=== PATIENT | female | born 1995 | race Caucasian/White ===

== ENCOUNTER 2017-01-09 13:55 | Emergency (ER) | payer OTHER ==
[2017-01-09 17:32] LABS: Manual Entry Verification MD; UR Preg Internal Control QC Line Present
[2017-01-09 17:38] LABS: Urine Bacteria Absent (Absent); Urine Bilirubin Negative (Negative); Urine Glucose Negative (Negative); Urine Nitrite Negative (Negative)
[2017-01-09] MEDS ORDERED: Morphine INJ* 4 MG/ML 1 ML SYRINGE IV ONE (17:43)
[2017-01-09] MEDS ORDERED: Ondansetron INJ* 2 MG/ML VIAL IV ONE (17:43)
[2017-01-09] MEDS ORDERED: NS 0.9% 1000 ML* 1,000 ML IV ONE ×2 (17:44→19:36)
[2017-01-09 18:48] LABS: Hematocrit 39 % (35-47); Hemoglobin 12.6 g/dl (12.0-16.0); Mean Corpuscular HGB Conc 33 g/dl (31-36); Mean Corpuscular Hemoglobin 27 pg (27-31); Mean Corpuscular Volume 84 fL (80-97); Mean Platelet Volume 8 um3 (7.4-10.4); Red Blood Count 4.63 10^6/ul (4.0-5.4); Red Cell Distribution Width 15 % (10.5-15); White Blood Count 5.9 10^3/ul (3.5-10.8)
--- NOTE | 2017-01-09 18:49 | RAD ---
INDICATION: Right adnexal pain and emesis COMPARISON: None. TECHNIQUE: Real-time transabdominal and transvaginal ultrasound examination of the female pelvis including grayscale and Doppler color flow imaging. FINDINGS: Uterus: The uterus is normal in size and echogenicity measuring 7.6 x 3.6 x 4.4 cm. The endometrial stripe is smooth and uniform measuring 8 mm in thickness. Ovaries: The right and left ovary measure 4.6 x 3.3 x 3.7 cm and 4.2 x 1.9 x 2.3 cm, respectively. Normal arterial and venous waveforms are identified. Within the right ovary there is a partially echogenic but avascular cystic structure measuring 2.6 x 2.1 x 2.3 cm. There is small amount of free fluid in the cul-de-sac. IMPRESSION: Complex right ovarian cystic structure is most compatible with a involuting or hemorrhagic follicle with a small amount of free fluid in the pelvis in this otherwise normal and age-appropriate pelvic ultrasound.
[2017-01-09 18:57] LABS: Albumin 4.5 g/dL (3.2-5.2); BUN/Creatinine Ratio 13.9 (8-20); Calcium 9.5 mg/dL (8.6-10.3); EGFR African American 130.3 (>60); EGFR Non-African American 101.3 (>60); Globulin 3.8 g/dL (2-4); Potassium 3.5 mmol/L (3.5-5.0); Total Bilirubin 0.6 mg/dL (0.2-1.0); Total Protein 8.3 g/dL (6.4-8.9)
[2017-01-09] MEDS ORDERED: Iohexol 300* (CONTRAST) 10 ML SDV IV ONE (19:17)
[2017-01-09] MEDS ORDERED: diPHENhydraMINE IV* 50 MG/ML 1 ml VIAL (BENADRYL) IV ONE (21:06)
[2017-01-09] MEDS ORDERED: diPHENhydraMINE IV* 50 MG/ML 1 ml VIAL (BENADRYL) ONE (21:07)
--- NOTE | 2017-01-09 21:24 | RAD ---
CLINICAL HISTORY: Right lower quadrant pain COMPARISON: Same day pelvic ultrasound that shows a complex right ovarian follicle in a small amount of free fluid in the pelvis. TECHNIQUE: Contrast enhanced CT examination of the abdomen and pelvis from the lung bases through the initial tuberosities. The patient received 100 mL Omnipaque 300 intravenously prior to imaging.The patient received oral contrast as well prior to imaging. FINDINGS: VISUALIZED LUNG BASES: The visualized lung bases are grossly clear. There is no pleural effusion. ABDOMEN AND PELVIS: The liver, spleen, pancreas and adrenal glands are grossly normal in appearance. The gallbladder is normal. The kidneys are normal in appearance without focal mass, calcification or signs of hydronephrosis. Neural contrast has progressed only as far as the midportion small bowel. The small and large bowel are not distended. The 6 mm wide appendix has gas in the lumen and does not exhibit any acute inflammatory changes (axial image 152 and coronal image 36). There is no gross retroperitoneal or mesenteric lymphadenopathy. There is a 2 cm fluid density structure in the right adnexa likely corresponds to the previously identified right ovarian follicle. There is a small amount of free fluid in the cul-de-sac. The abdominal aorta and iliac arteries are normal in course and diameter. 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 IMPRESSION: 1. Normal appendix according to CT criteria. 2. CT findings are consistent with a 2 cm right ovarian follicle as was seen on the same day pelvic ultrasound. 3. 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
[2017-01-09] MEDS ORDERED: Ketorolac INJ* 30 MG/ML 1 ML VIAL IV PUSH ONE (22:00)
[2017-01-09 22:20] VITALS: BP 119/67
--- NOTE | 2017-01-10 22:23 | ED ---
José Miguel Mckeon Adam, scribed for Jori Nieto MD on 01/09/17 at 1615 . GI/ HPI - HPI Summary HPI Summary: Pt is a 21 year old female presenting with abdominal pain and vomiting. She states that she has been on medication for bacterial vaginitis. 2 days ago she had a mimosa and within 30 minutes she developed dizziness and then vomited. Since then she has been having nausea, vomiting, and abdominal pain. She states that she has been unable to tolerate anything including water or Pedia-lite. The abdominal pain is localized in her lower abdomen and is a 7/10. She denies any fever or burning during urination. She denies any other PMHx or surgical hx. LMP was last week. FMHx of appy (mother in her 20's) and ovarian cysts. - History of Current Complaint Chief Complaint: EDAbdPain Time Seen by Provider: 01/09/17 16:09 Stated Complaint: VOMITING Hx Obtained From: Patient Onset/Duration: Started Days Ago, Atraumatic, Still Present Timing: Constant Severity: Moderate Current Severity: Moderate Pain Intensity: 7 Location of Pain: Diffuse, RLQ, LLQ Associated Signs and Symptoms: Positive: Dizziness, Nausea, Vomiting Aggravating Factor(s): Food - Alcohol while on medication for bacterial vaginitis Alleviating Factor(s): Nothing - Allergy/Home Medications Allergies/Adverse Reactions: Allergies Allergy/AdvReac Type Severity Reaction Status Date / Time Sulfa Antibiotics Allergy Hives Verified 01/09/17 16:58 PMH/Surg Hx/FS Hx/Imm Hx Infectious Disease History: No Infectious Disease History: Denies: Traveled Outside the [place] in Last 30 Days - Family History Known Family History: Positive: Other - Appendectomy (mother in 20's). Ovarian cysts. - Social History Occupation: Student Lives: With Family - Mother Alcohol Use: Occasionally Review of Systems Negative: Fever, Chills Negative: Erythema Negative: Sore Throat Negative: Chest Pain Negative: Shortness Of Breath, Cough Positive: Abdominal Pain, Vomiting, Nausea Negative: dysuria, hematuria Negative: Myalgia, Edema Negative: Rash Neurological: Other - Dizziness All Other Systems Reviewed And Are Negative: Yes Physical Exam - Summary Physical Exam Summary: Constitutional: Well-developed, Well-nourished, Alert. (-) Distressed Skin: Warm, Dry HENT: Normocephalic; Atraumatic Eyes: Conjunctiva normal Neck: Musculoskeletal ROM normal neck. (-) JVD, (-) Stridor, (-) Tracheal deviation Cardio: Rhythm regular, rate normal, Heart sounds normal; Intact distal pulses; The pedal pulses are 2+ and symmetric. Radial pulses are 2+ and symmetric. (-) Murmur Pulmonary/Chest wall: Effort normal. (-) Respiratory distress, (-) Wheezes, (-) Rales Abd: RLQ tenderness. Musculoskeletal: (-) Edema Lymph: (-) Cervical adenopathy Neuro: Alert, Oriented x3 Psych: Mood and affect Normal Triage Information Reviewed: Yes Vital Signs On Initial Exam: Initial Vitals Temp Pulse Resp BP Pulse Ox 97.7 F 69 16 129/66 100 01/09/17 13:59 01/09/17 13:59 01/09/17 13:59 01/09/17 13:59 01/09/17 13:59 Vital Signs Reviewed: Yes Diagnostics - Vital Signs Vital Signs Temp Pulse Resp BP Pulse Ox 01/09/17 14:58 97.9 F 53 16 122/72 100 01/09/17 13:59 97.7 F 69 16 129/66 100 - Laboratory Result Diagrams: 01/09/17 18:23 01/09/17 18:23 Lab Statement: Any lab studies that have been ordered have been reviewed, and results considered in the medical decision making process. - CT ABDOMEN/PELVIS CT Interpretation Completed By: Radiologist - IMPRESSION: 1. Normal appendix according to CT criteria. 2. CT findings are consistent with a 2 cm right ovarian follicle as was seen on the same day pelvic ultrasound. 3. 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 - Additional Comments Diagnostic Additional Comments: TRANSVAGINAL ULTRASOUND - IMPRESSION: Complex right ovarian cystic structure is most compatible with a involuting or hemorrhagic follicle with a small amount of free fluid in the pelvis in this otherwise normal and age-appropriate pelvic ultrasound. GIGU Course/Dx - Diagnoses Provider Diagnoses: Right ovarian cyst Discharge - Discharge Plan Condition: Stable Disposition: HOME Prescriptions: Ondansetron ODT TAB* [Zofran 4 MG Odt TAB*] 4 mg PO Q8H PRN #10 tab.odt PRN Reason: Nausea/Vomiting Patient Education Materials: Ovarian Cyst (ED) Referrals: [facility] [Primary Care Provider] - Additional Instructions: Follow up with [facility] in 2 days. Take Motrin for the pain. The documentation as recorded by the José Miguel richard Adam accurately reflects the service I personally performed and the decisions made by me, Jori Nieto MD.
== END 2017-01-09 22:30 | disposition home or self-care (01) ==
LOC: ED 13:55
DX: N83.201 Unspecified ovarian cyst, right side (principal); R10.30 Lower abdominal pain, unspecified; R11.2 Nausea with vomiting, unspecified
CPT/HCPCS: 36415; 74177; 76830; 80053; 81003; 81015; 81025; 83605; 85025; 87086; 96374; 96375; 99284; J1200; J2270; J2405; Q9967